=== PATIENT | female | born 1965 | race Caucasian/White ===

== ENCOUNTER 2017-09-25 08:09 | Emergency (ER) | payer OTHER ==
[2017-09-25] MEDS ORDERED: HYDROcodone/Acetaminophen 5/325 mg Tablet ONE (08:51)
[2017-09-25] MEDS ORDERED: Bacitracin Zinc 1 Packet ONE (09:03)
--- NOTE | 2017-09-25 10:45 | RAD ---
LEFT HAND 3 VIEWS: Date: 09/25/17 PROVIDED CLINICAL HISTORY: Puncture wounds. FINDINGS: Soft tissue gas is seen involving the dorsum of the hand, compatible with the provided clinical histo ry. There is no evidence for radiopaque foreign body. There is no evidence for fracture or other acut e osseous abnormality. IMPRESSION: No evidence for fracture or radiopaque foreign body. POS: ANOOP
== END 2017-09-25 09:17 | disposition home or self-care (01) ==
LOC: SCSER 08:09
DX: S61.452A Open bite of left hand, initial encounter (principal); E78.5 Hyperlipidemia, unspecified; I10 Essential (primary) hypertension; F41.9 Anxiety disorder, unspecified; Z79.899 Other long term (current) drug therapy; W55.01XA Bitten by cat, initial encounter

== ENCOUNTER 2019-09-06 11:52 | Observation (INO) | payer OTHER, SELFPAY ==
[2019-09-06 12:43] LABS: #Basophils 0.1 thou/uL (0.0-0.2); #Lymphocytes 1.8 thou/uL (1.20-3.40); #Monocytes 0.6 thou/uL (0.11-0.59); #Neutrophils 3.8 thou/uL (1.40-6.50); %Basophils 1.1 % (0.0-1.0); %Eosinophils 0.1 % (0.0-10.0); %Lymphocytes 28.6 % (21.0-51.0); %Monocytes 9.1 % (0.0-10.0); %Neutrophils 61.1 % (42.0-75.0); Hemoglobin 15.9 g/dL (12.0-16.0); Mean Corpuscular HGB CONC 33.8 g/dL (32.0-36.0); Mean Corpuscular Hemoglobin 30.7 pg (27.0-31.0); Mean Corpuscular Volume 90.8 fL (78.0-98.0); Mean Platelet Volume 6.9 fL (7.4-10.4); Platelet Count 298 thou/uL (130-400); RBC Distribution Width 11.7 % (11.5-14.5); Red Blood Cell (RBC) Count 5.19 mill/uL (4.20-5.40); White Blood Cell (WBC) Count 6.2 thou/uL (4.8-10.8)
[2019-09-06] MEDS ORDERED: Azithromycin 500 MG VIAL ONE (12:45)
[2019-09-06] MEDS ORDERED: Acetaminophen 500 MG TAB ONE (12:45)
[2019-09-06] MEDS ORDERED: cefTRIAXone\\ROCEPHIN 2 GM VIAL ONE (12:45)
[2019-09-06 13:05] LABS: ALT (SGPT) 27 U/L (8-55); AST (SGOT) 31 U/L (5-34); Albumin 4.3 g/dL (3.5-5.0); Alkaline Phosphatase 110 U/L (40-110); Anion Gap 16 mmol/L (10-20); BUN (Urea Nitrogen) 14 mg/dL (9.8-20.1); Bilirubin, Total 0.6 mg/dL (0.2-1.2); Calc. Creatinine Clearance 0 mL/min (70-130); Calcium 9.9 mg/dL (7.8-10.44); Carbon Dioxide 22 mmol/L (22-29); Chloride 97 mmol/L (98-107); Estimated GFR-MDRD 40; Globulin 4.3 g/dL (2.4-3.5); Glucose 120 mg/dL (70-105); Potassium 3.4 mmol/L (3.5-5.1); Protein, Total 8.6 g/dL (6.0-8.3); Sodium 132 mmol/L (136-145)
[2019-09-06] MEDS ORDERED: Azithromycin 250 MG TAB ONE (13:45)
--- NOTE | 2019-09-06 14:24 | RAD ---
PORTABLE CHEST: 09/06/19 INDICATIONS: Cough and fever. COMPARISON: 06/19/14. Lungs appear clear. No infiltrate identified. There are calcified granuloma in the right lower lung w hich appears stable. Heart and mediastinum unremarkable. Vascular markings normal. IMPRESSION: No acute process identified. POS: AGW
[2019-09-06] MEDS ORDERED: Ondansetron PF 4 MG/2 ML Vial ONE (15:18)
[2019-09-06 17:33] LABS: Bacteria/HPF None Seen HPF (None Seen); Bilirubin Negative (Negative); Blood, Urine Negative (Negative); Clarity Clear (Clear); Glucose, Urine (Dipstick) Normal (Negative); Leukocyte 25 Leu/uL (Negative); Nitrite Negative (Negative); Protein, Urine (Dipstick) Negative (Neg-Trace); RBC/HPF 0-3 HPF (0-3); Squamous Epithelial 0-3 HPF (0-3); Urobilinogen Normal mg/dL (Less than 2); WBC/HPF 0-3 HPF (0-3)
--- NOTE | 2019-09-06 18:38 | PDOC.HHP ---
Hospitalist HPI - History of Present Illness fever History of Present Illness: This is a 54 year old female with past medical history of hypertension who presents to the ER with fever, nausea, vomiting. 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 She last saw the patient on . She states the patient's mother and grandmother were COVID positive, but she did not know at the time. The patient' s mother and grandmother visited the boy and when she visited the patient he had some nausea/vomiting and mild cough. The patient states she was not wearing a mask while visiting him because she didn't think much of it. On Tuesday she started she "felt like she had the flu but on steroids." She described recurrent nausea and vomiting, diffuse myalgias and fever up to 103 multiple days in a row. She does have a mild dry cough and feels shortness of breath on exertion. She has no pleuritic chest pain. She has been unable to sleep the last few nights. She presented to the ER after she found out the 7 year old boy tested positive for COVID. She denies diarrhea. She has not taken any over the counter medications to relieve her symptoms. ED Course: The patient presented to the ER with normal vitals, but a heart rate of 145. The patient was given 1.5L of fluid, ceftriaxone, azithromycin. Flu swab was negative. Blood cultures were ordered. Chest X ray was normal. Urine culture sent and pending Hospitalist ROS - Review of Systems Constitutional: reports: fever, chills, sweats Respiratory: reports: cough, shortness of breath Cardiovascular: denies: chest pain, palpitations, orthopnea Gastrointestinal: reports: nausea, vomiting, abdominal pain, diarrhea Genitourinary: denies: dysuria, frequency - Exam General Appearance: NAD, awake alert General - other findings: appears ill Eye: PERRL, anicteric sclera ENT: normocephalic atraumatic, no oropharyngeal lesions Neck: no JVD Heart: RRR, no murmur, no gallops, no rubs, normal peripheral pulses Respiratory: CTAB, no wheezes, no rales, no ronchi Gastrointestinal: soft, non-tender, non-distended, normal bowel sounds Extremities: no cyanosis, no clubbing, no edema Skin: normal turgor, no lesions, no rashes Neurological: cranial nerve grossly intact, normal sensation to touch, no focal deficits, no new deficit Hospitalist Results - Labs Result Diagrams: 09/06/19 12:25 09/06/19 12:25 Lab results: WBC 6.2 thou/uL (4.8-10.8) 09/06/19 12:25 Hgb 15.9 g/dL (12.0-16.0) 09/06/19 12:25 Hct 47.1 % (36.0-47.0) H 09/06/19 12:25 MCV 90.8 fL (78.0-98.0) 09/06/19 12:25 Plt Count 298 thou/uL (130-400) 09/06/19 12:25 Neutrophils % 61.1 % (42.0-75.0) 09/06/19 12:25 Sodium 132 mmol/L (136-145) L 09/06/19 12:25 Potassium 3.4 mmol/L (3.5-5.1) L 09/06/19 12:25 Chloride 97 mmol/L (98-107) L 09/06/19 12:25 Carbon Dioxide 22 mmol/L (22-29) 09/06/19 12:25 BUN 14 mg/dL (9.8-20.1) 09/06/19 12:25 Creatinine 1.37 mg/dL (0.6-1.1) H 09/06/19 12:25 Glucose 120 mg/dL (70-105) H 09/06/19 12:25 Lactic Acid 1.8 mmol/L (0.5-2.2) 09/06/19 12:25 Calcium 9.9 mg/dL (7.8-10.44) 09/06/19 12:25 Total Bilirubin 0.6 mg/dL (0.2-1.2) 09/06/19 12:25 AST 31 U/L (5-34) 09/06/19 12:25 ALT 27 U/L (8-55) 09/06/19 12:25 Alkaline Phosphatase 110 U/L (40-110) 09/06/19 12:25 Troponin I Less than 0.010 ng/mL (< 0.028) 09/06/19 12:36 Serum Total Protein 8.6 g/dL (6.0-8.3) H 09/06/19 12:25 Albumin 4.3 g/dL (3.5-5.0) 09/06/19 12:25 Urine Ketones Trace mg/dL (Negative) A 09/06/19 16:59 Urine Blood Negative (Negative) 09/06/19 16:59 Urine Nitrite Negative (Negative) 09/06/19 16:59 Ur Leukocyte Esterase 25 Benji/uL (Negative) A 09/06/19 16:59 Urine RBC 0-3 HPF (0-3) 09/06/19 16:59 Urine WBC 0-3 HPF (0-3) 09/06/19 16:59 Ur Squamous Epith Cells 0-3 HPF (0-3) 09/06/19 16:59 Urine Bacteria None Seen HPF (None Seen) 09/06/19 16:59 - EKG Interpretation EKG: EKG normal Hospitalist H&P A/P - Plan Plan: This is a 54 year old female with past medical history of hypertension who presents with fever ,nausea, vomiting, abdominal pain after recent COVID exposure #SIRS - likely secondary to viral infection #Fever #Intractable nausea/vomiting #Acute Kidney Injury #Hyponatremia #Hyperkalemia - blood cultures and urine culture sent. Chest X ray normal, flu panel negative. Highly suspicious for COVID given recent sick contact - will start dexamethasone empirically. Continue ceftriaxone and azithromycin for now - monitor O2 requirement - s/p IV fluid hydration for hyponatremia and creatinine of 1.37. Administer potassium for K 3.2. Repeat BMP in am DVT prophylaxis: ambulation/SCDS Code status: full code
[2019-09-06] MEDS ORDERED: Ondansetron PF 4 MG/2 ML Vial IVP PRN (18:48)
[2019-09-06] MEDS ORDERED: Potassium Chloride 20 MEQ TAB PO SCH (19:00)
[2019-09-06] MEDS ORDERED: Dexamethasone 4 MG TAB PO SCH (19:00)
[2019-09-06 19:41] LABS: Troponin I Less than 0.010 ng/mL (< 0.028)
[2019-09-06] MEDS: Heparin 5,000 UNITS/ML VIAL SC SCH (20:18)
[2019-09-06 21:51] LABS: Troponin I Less than 0.010 ng/mL (< 0.028)
[2019-09-07 04:59] LABS: #Lymphocytes 0.8 thou/uL (1.20-3.40); #Monocytes 0.1 thou/uL (0.11-0.59); #Neutrophils 2.7 thou/uL (1.40-6.50); %Eosinophils 0.3 % (0.0-10.0); %Monocytes 2.9 % (0.0-10.0); %Neutrophils 74.8 % (42.0-75.0); Hemoglobin 13.8 g/dL (12.0-16.0); Mean Corpuscular HGB CONC 33.3 g/dL (32.0-36.0); Mean Platelet Volume 7.1 fL (7.4-10.4); Platelet Count 236 thou/uL (130-400); RBC Distribution Width 11.7 % (11.5-14.5); Red Blood Cell (RBC) Count 4.44 mill/uL (4.20-5.40); White Blood Cell (WBC) Count 3.7 thou/uL (4.8-10.8)
[2019-09-07 05:24] LABS: Anion Gap 12 mmol/L (10-20); BUN (Urea Nitrogen) 14 mg/dL (9.8-20.1); Calc. Creatinine Clearance 83 mL/min (70-130); Carbon Dioxide 23 mmol/L (22-29); Chloride 104 mmol/L (98-107); Estimated GFR-MDRD 55; Glucose 156 mg/dL (70-105); Potassium 4.4 mmol/L (3.5-5.1); Sodium 135 mmol/L (136-145)
[2019-09-07] MEDS: Heparin 5,000 UNITS/ML VIAL SC SCH ×2 (08:48→14:17)
[2019-09-07] MEDS ORDERED: Dexamethasone 4 MG TAB PO SCH (09:00)
[2019-09-07 09:45] VITALS: BMI 31.2
[2019-09-07 12:19] LABS: SARS-CoV-2 MS2 Positive; SARS-CoV-2 N Gene Positive; SARS-CoV-2 S Gene Positive; SARS-CoV-2 orf1ab Positive
[2019-09-07] MEDS ORDERED: cefTRIAXone\\ROCEPHIN 1 GM in Sodium Chloride 0.9% 100 ML IVPB SCH ×2 (13:00→21:00)
[2019-09-07] MEDS ORDERED: Azithromycin 250 MG in Sodium Chloride 0.9% 250 ML 250 ML IVPB SCH ×2 (14:00→21:00)
[2019-09-07 14:07] VITALS: BP 135/84; TEMP 98.3
--- NOTE | 2019-09-07 23:50 | DIS ---
DATE OF ADMISSION: 09/06/2019 DATE OF DISCHARGE: 09/07/2019 DISCHARGE DIAGNOSES: 1. Sepsis secondary to COVID infection. 2. Leukopenia. 3. Hyponatremia. 4. Hypokalemia. 5. Acute kidney injury. BRIEF HISTORY OF PRESENT ILLNESS: This is a 54-year-old female with past medical history of hypertension, who presented to the emergency room with fevers, nausea , and vomiting. 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 The patient reported fevers up to 103 multiple days in a row. She also had dry cough and shortness of breath. When she presented to the emergency room, her heart rate was 145. She was given 1.5 L of fluid, ceftriaxone, and azithromycin. Flu swab was negative. Chest x-ray was normal. She was admitted for further workup. HOSPITAL COURSE: Sepsis secondary to COVID infection: The patient had blood and urine cultures, which were normal. She was started on dexamethasone for suspicion of COVID infection. The patient reported no recurrence of her nausea and vomiting. She ambulated around the hallway without any shortness of breath and remained on room air. She was discharged with Zofran and azithromycin for 4 more days. She was also given a prescription for dexamethasone for three additional days to complete a 5-day course of steroids. She will follow up with her PCP in a week. She was advised to quarantine for at least 10 days. Hyponatremia/Hypokalemia/Acute kidney injury: The patient had a sodium of 132, potassium 3.4 and was given IV fluids and creatinine of 1.37 on admission. Her sodium improved to 135 and her creatinine improved to 1.05 on the day of discharge. DISCHARGE PHYSICAL EXAMINATION: VITAL SIGNS: Temperature 98.3, heart rate 90, respiratory rate 18, O2 saturation 96% on room air, and blood pressure 135/84. GENERAL: The patient is alert, awake, and oriented x3. CVS: Regular rate and rhythm with no murmurs, rubs, or gallops. LUNGS: Clear to auscultation bilaterally. ABDOMEN: Positive bowel sounds, soft, nontender, and nondistended. EXTREMITIES: No edema. PERTINENT LABORATORY DATA: CBC 09/06: White count 3.7, hemoglobin 13.8, hematocrit 41.3, platelet count 236. BMP 09/06: Sodium 135, potassium 4.4, creatinine 1.05. Rest of BMP is normal. Troponin I: Less than 0.010, 0.010, 0.010. LFTs 09/05: Normal. UA 09/05: Trace ketones, 25 leukocyte esterase, 46 hyaline casts. COVID serology 09/05: Positive. IMAGING: Chest x-ray 09/05: Shows no acute process. DISCHARGE CONDITION: Stable. ACTIVITY: As tolerated. DIET: Regular diet. DISCHARGE PRESCRIPTIONS: 1. Dexamethasone 6 mg daily for 3 more tablets. 2. Z-Jairon 250 daily for 4 more tablets. 3. Zofran 4 mg p.o. q.8 hours p.r.n. DISCONTINUED MEDICATIONS: Lisinopril/HCTZ. DISCHARGE INSTRUCTIONS: The patient to follow up with her PCP in a week. She should stop taking her blood pressure medicines for now unless it becomes elevated. She should get a repeat CBC in a few weeks to make sure her leukopenia has resolved. Job ID: [id number] [facility] HOSPITALSelvin
== END 2019-09-07 15:28 | disposition home or self-care (01) ==
LOC: ERS 11:52 → 2SW 14:26
PROVIDERS: ADMIT Internal Medicine; ATTEND Internal Medicine
DX: A41.89 Other specified sepsis (principal); U07.1 COVID-19; I10 Essential (primary) hypertension; N17.9 Acute kidney failure, unspecified; E87.6 Hypokalemia; E87.1 Hypo-osmolality and hyponatremia; Z79.899 Other long term (current) drug therapy
CPT/HCPCS: 36415; 71045; 80048; 80053; 81003; 81015; 83605; 84484; 85025; 87040; 87086; 87635; 87804; 93005; 96361; 96365; 96372; 96375; 96376; G0378; J0456; J0696; J1644; J2405; J3490; J8540; U0003

== ENCOUNTER 2021-09-30 13:14 | Outpatient (CLI) | payer BC | END 2021-09-30 13:15 | disposition home or self-care (01) | LOC: SCSMRI 13:14 | PROVIDERS: ATTEND Nurse Practitioner Family | DX: M54.16 Radiculopathy, lumbar region (principal); M48.07 Spinal stenosis, lumbosacral region | CPT/HCPCS: 72148 ==

== ENCOUNTER 2022-11-03 14:15 | Outpatient (CLI) | payer BC | END 2022-11-03 14:16 | disposition home or self-care (01) | LOC: BICMRI 14:15 | PROVIDERS: ATTEND Specialist | DX: M54.16 Radiculopathy, lumbar region (principal); M51.37 Other intervertebral disc degeneration, lumbosacral region; M48.07 Spinal stenosis, lumbosacral region | CPT/HCPCS: 72148 ==

== ENCOUNTER 2022-12-20 15:53 | Outpatient (CLI) | payer BC | END 2022-12-20 15:54 | disposition home or self-care (01) | LOC: BICRAD 15:53 | PROVIDERS: ATTEND Specialist | DX: M25.552 Pain in left hip (principal) ==

== ENCOUNTER 2023-12-29 11:36 | Outpatient (CLI) | payer BC | END 2023-12-29 11:37 | disposition home or self-care (01) | LOC: BICRAD 11:36 | PROVIDERS: ATTEND Nurse Practitioner Family | DX: M47.816 Spondylosis without myelopathy or radiculopathy, lumbar region (principal); M51.379 Other intervertebral disc degeneration, lumbosacral region without mention of lumbar back pain or lower extremity pain | CPT/HCPCS: 72100 ==